=== PATIENT | male | born 1985 | race Two or more races ===

== ENCOUNTER 2024-01-10 15:51 | Emergency (ER) | payer OTHER ==
[~2024-01-10] VITALS: Ht 175.3 cm; Wt 75.5 kg
[2024-01-10 16:21] VITALS: TEMP 97.8
[2024-01-10] MEDS: MAG HYDROX/ALUMINUM HYD/SIMETH 30 ML SUSPENSION UDCUP PO ONE (16:59)
[2024-01-10] MEDS: ACETAMINOPHEN 500 MG TABLET PO ONE (16:59)
[2024-01-10] MEDS: FAMOTIDINE 20 MG/2 ML VIAL IVP ONE (17:00)
[2024-01-10] MEDS: ONDANSETRON HCL 4 MG/2 ML VIAL IVP ONE (17:00)
[2024-01-10 17:01] LABS: EOSINOPHILS % (AUTO) 3.7 % (1.0-6.0); HEMATOCRIT 40.5 % (41-53); HEMOGLOBIN 13.9 g/dL (13.5-17.5); LYMPHOCYTES # (AUTO) 1.4 K/uL (1.0-4.8); LYMPHOCYTES % (AUTO) 33.9 % (22.0-44.0); MEAN CORPUSCULAR HEMOGLOBIN 32.2 pg (26.0-34.0); MEAN CORPUSCULAR HGB CONC 34.4 G/dL (31.0-37.0); MEAN CORPUSCULAR VOLUME 94 fL (80-100); MONOCYTES # (AUTO) 0.4 K/uL (0.1-1.0); MONOCYTES % (AUTO) 8.7 % (2.0-9.0); NEUTROPHILS # (AUTO) 2.2 K/uL (1.8-7.7); NEUTROPHILS % (AUTO) 52.7 % (40.0-70.0); PLATELET COUNT (AUTO) 169 K/uL (150-450); RED BLOOD CELL COUNT(AUTO) 4.33 MIL/uL (4.50-5.90); RED CELL DISTRIBUTION WIDTH 13.3 % (11.5-14.5); WHITE BLOOD COUNT (AUTO) 4.1 K/uL (4.5-11.0)
[2024-01-10 17:09] LABS: ANION GAP 7 mmol/L (8-16); CALCIUM, TOTAL 9.1 mg/dL (8.8-10.5); CARBON DIOXIDE 31 mmol/L (22-29); CHLORIDE 103 mmol/L (98-107); CREATININE 0.63 mg/dL (0.60-1.30); GLOMERULAR FILTR. RATE CALC > 60 mL/min (>60); GLUCOSE,RANDOM 81 mg/dL (70-110); POTASSIUM 4.3 mmol/L (3.5-5.1); SODIUM SERUM 141 mmol/L (136-145); UREA NITROGEN, BLOOD 10 mg/dL (7-18)
[2024-01-10 17:15] LABS: ALANINE AMINOTRANSFERASE 37 U/L (12-78); ALBUMIN 3.8 g/dL (3.4-5.0); ALKALINE PHOSPHATASE 66 U/L (46-116); ASPARTATE AMINOTRANSFERASE 27 U/L (15-37); BILIRUBIN,TOTAL 0.4 mg/dL (0.1-1.0); LIPASE 37 U/L (16-77); TOTAL PROTEIN, SERUM 7.1 g/dL (6.4-8.2)
[2024-01-10 17:27] LABS: COVID AG,FIA SOURCE NASAL SWAB
[2024-01-10] MEDS ORDERED: SODIUM CHLORIDE 0.9% 100 ML ONE (17:28)
[2024-01-10] MEDS ORDERED: IOHEXOL 350 MG/ML 100 ML VIAL ONE (17:28)
[2024-01-10 17:51] LABS: SARS-COV2 (COVID) ANTIGEN,FIA Negative (Negative)
[2024-01-10 18:35] VITALS: BP 108/62; PULSE 53; RESP 18
== END 2024-01-10 18:48 ==
LOC: EMS 15:51 → EDSEX 15:51 → EMS 18:48
DX: R10.33 Periumbilical pain (principal); F17.210 Nicotine dependence, cigarettes, uncomplicated; Z98.890 Other specified postprocedural states; Z20.822 Contact with and (suspected) exposure to COVID-19
CPT/HCPCS: 99285; 74177; 96374; 96375; 87426; 80053; 83690; 85025; 36415; J3490; J2405; Q9967; J7050